=== PATIENT | male | born 2000 | race Two or more races ===

== ENCOUNTER 2024-06-29 21:46 | Emergency (ER) | payer SELFPAY ==
[~2024-06-29] VITALS: Ht 180.3 cm; Wt 65.9 kg
[2024-06-29 21:55] VITALS: BP 115/77; PULSE 117; RESP 16; TEMP 98.6; O2SAT 97
[2024-06-29] MEDS: HYDROcodone-ACET 10/325MG TAB PO ONE (23:26)
[2024-06-30] MEDS ORDERED: IBUP-1455 PO (00:21)
[2024-06-30] MEDS ORDERED: ACET500T58 PO (00:21)
== END 2024-06-30 00:27 | disposition home or self-care (01) ==
LOC: ER 21:46
DX: S93.492A Sprain of other ligament of left ankle, initial encounter (principal); S00.83XA Contusion of other part of head, initial encounter; S20.212A Contusion of left front wall of thorax, initial encounter; V49.88XA Car occupant (driver) (passenger) injured in other specified transport accidents, initial encounter; Y93.I9 Activity, other involving external motion; Y92.488 Other paved roadways as the place of occurrence of the external cause; Y99.8 Other external cause status
CPT/HCPCS: 70450; 71046; 73610